=== PATIENT | female | born 1980 | race Caucasian/White ===

== ENCOUNTER 2021-10-02 18:04 | Emergency (ER) | payer OTHER ==
[~2021-10-02] VITALS: Ht 152.4 cm; Wt 70.8 kg
[2021-10-02] MEDS ORDERED: LAMOTRIGINE250 MG PO (18:16)
[2021-10-02] MEDS ORDERED: LUNESTA3 MG PO (18:17)
[2021-10-02] MEDS ORDERED: MELATONIN3 M2 PO (18:17)
[2021-10-02] MEDS ORDERED: ACYCLOVIR 200200 MG PO (18:17)
[2021-10-02] MEDS ORDERED: ESCITALOPRAM (18:18)
[2021-10-02 19:02] LABS: INFLUENZA A ANTIGEN Negative (Negative); INFLUENZA B ANTIGEN Negative (Negative)
[2021-10-02 19:10] LABS: URINE BILIRUBIN NEGATIVE (Negative); URINE BLOOD NEGATIVE (Negative); URINE CLARITY CLEAR; URINE COLOR YELLOW; URINE GLUCOSE-RANDOM NEGATIVE (Negative); URINE KETONES NEGATIVE (Negative); URINE LEUKOCYTES NEGATIVE (Negative); URINE NITRITE NEGATIVE (Negative); URINE PROTEIN NEGATIVE (Negative); URINE SPECIFIC GRAVITY 1.015 (1.005-1.030); URINE UROBILINOGEN 0.2 E.U./dl (0.2-1.0)
[2021-10-02 19:36] LABS: MPV 6.9 fl. (7.2-11.1); NUCLEATED RBCS 0 /100WBC
[2021-10-02 19:38] LABS: ABSOLUTE BASOPHILS 0.1 thou/uL (0.0-0.2); ABSOLUTE EOSINOPHILS 0.1 thou/uL (0.0-0.7); ABSOLUTE LYMPHOCYTES 1.7 thou/uL (0.8-5.3); ABSOLUTE MONOCYTES 0.6 thou/uL (0.0-1.2); ABSOLUTE NEUTROPHILS 4.5 thou/uL (1.6-8.1); BASOPHILS 1.4 %; EOSINOPHILS 2.1 %; HEMATOCRIT 40.1 % (37.0-47.0); HEMOGLOBIN 13.8 gm/dL (12.0-15.0); LYMPHOCYTES 23.6 %; MCH 30.4 pg (26.0-34.0); MCHC 34.4 g/dL (28.0-37.0); MCV 88.5 fL (80.0-100.0); MONOCYTES 9.2 %; PLATELET COUNT* 314 thou/uL (150-400); POLYS 63.7 %; RBC 4.53 mil/uL (4.20-5.00); RDW-CV 13.6 % (10.5-14.5)
[2021-10-02 19:40] LABS: CALCIUM 8.7 mg/dL (8.5-10.1); CREATININE 0.7 mg/dL (0.6-1.3); POTASSIUM 4.2 mmol/L (3.5-5.1)
[2021-10-02 19:56] VITALS: BP 158/89
== END 2021-10-02 19:56 | disposition home or self-care (01) ==
LOC: M.ERS 18:04
PROVIDERS: Physician Assistant
DX: R42 Dizziness and giddiness (principal); Z20.822 Contact with and (suspected) exposure to COVID-19; F31.9 Bipolar disorder, unspecified; Z91.040 Latex allergy status; Z79.899 Other long term (current) drug therapy; Z98.890 Other specified postprocedural states; Z98.51 Tubal ligation status

== ENCOUNTER → 2021-10-09 | Outpatient (CLI) | payer OTHER, MEDICAID ==
[~2021-10-09] MED LIST: ACYCLOVIR 200200 MG PO; ESCITALOPRAM; LAMOTRIGINE250 MG PO; LUNESTA3 MG PO; MELATONIN3 M2 PO
== END ==
LOC: M.RAD 10:00
DX: Z12.31 Encounter for screening mammogram for malignant neoplasm of breast (principal)